=== PATIENT | male | born 1960 | race Hispanic/Latino ===

== ENCOUNTER 2017-12-10 10:22 | Emergency (ER) | payer SELFPAY ==
[~2017-12-10] VITALS: Ht 157.5 cm; Wt 78.0 kg
[~2017-12-10 10:22] MED LIST: TYLENOL # 31 TAB PO
[2017-12-10] MEDS ORDERED: CEPHALEXIN500 MG PO (10:50)
[2017-12-10 11:25] LABS: URINE BILIRUBIN - DIPSTICK NEGATIVE (NEGATIVE); URINE BLOOD DIPSTICK MODERATE (NEGATIVE); URINE GLUCOSE - DIPSTICK NEGATIVE (NEGATIVE); URINE KETONE NEGATIVE (NEGATIVE); URINE PROTEIN - DIPSTICK 30 mg/dL (NEG-TRACE)
[2017-12-10 11:33] LABS: URINE CLARITY SL CLOUDY; URINE COLOR ORANGE; URINE NITRITE - DIPSTICK POSITIVE (Negative)
[2017-12-10 11:34] LABS: URINE LEUK ESTERASE NEGATIVE (NEGATIVE)
[2017-12-10 11:38] LABS: URINE BACTERIA FEW hpf; URINE MUCUS MODERATE hpf (NONE-FEW); URINE WBC 0-2 WBC/hpf (0-5)
[2017-12-10 11:45] VITALS: BP 140/80
== END 2017-12-10 11:45 | disposition home or self-care (01) | DRG 696 ==
LOC: ED 10:22
PROVIDERS: Family Medicine
DX: R30.0 Dysuria (principal); R36.9 Urethral discharge, unspecified; Z20.2 Contact with and (suspected) exposure to infections with a predominantly sexual mode of transmission
CPT/HCPCS: J0561

== ENCOUNTER 2018-02-15 07:30 | Inpatient (IN) | payer SELFPAY ==
[~2018-02-15] VITALS: Ht 157.5 cm; Wt 78.0 kg
[~2018-02-15 07:30] MED LIST changes: +CEPHALEXIN500 MG PO
[2018-02-15 08:43] LABS: HEMATOCRIT 43.4 % (39.0-50.0); HEMOGLOBIN 14.9 g/dl (14.0-18.0); IMMATURE GRANULOCYTES 0.4 % (0.0-1.0); MEAN CELL VOLUME 89.3 fL CALC (80.0-100.0); MEAN CORPUSCULAR HGB 30.7 pG CALC (26.0-32.0); MEAN CORPUSCULAR HGB CONC 34.3 g/L CALC (32.0-36.0); NEUT# 6.64 thou/uL (1.82-7.42); RED BLOOD COUNT 4.86 mill/uL (4.70-6.10); RED CELL DISTRI WIDTH 13.1 % (11.5-15.5); URINE BILIRUBIN - DIPSTICK NEGATIVE (NEGATIVE); URINE BLOOD DIPSTICK LARGE (NEGATIVE); URINE GLUCOSE - DIPSTICK NEGATIVE (NEGATIVE); URINE KETONE NEGATIVE (NEGATIVE); URINE LEUK ESTERASE TRACE (NEGATIVE); URINE NITRITE - DIPSTICK NEGATIVE (Negative); URINE PH 6.5 (4.5-8.0); URINE PROTEIN - DIPSTICK 100 mg/dL (NEG-TRACE); URINE UROBILINOGEN - DIPSTICK 0.2 E.U./dL (0.2)
[2018-02-15 08:48] LABS: URINE CLARITY BLOODY; URINE COLOR RED
[2018-02-15 08:56] LABS: ALBUMIN 4.6 g/dL (3.2-5.0); ALKALINE PHOSPHATASE 114 u/l (38-126); ANION GAP 22 (6-22 (CALC)); BILIRUBIN, TOTAL 2.2 mg/dL (0.0-1.4); BUN 10 mg/dL (9-20); BUN/CREATININE RATIO 14 (12-20 (CALC)); CARBON DIOXIDE 20 mmol/l (22-30); CHLORIDE 101 mmol/l (95-108); CREATININE 0.7 mg/dL (0.7-1.3); GFR > 60 ML/MIN (>=60 (CALC)); GFR FOR AFR.AMER. > 60 ML/MIN (>=60 (CALC)); POTASSIUM 3.9 mmol/l (3.5-5.1); SGOT/AST 56 u/l (17-59); SGPT/ALT 43 u/l (21-72); SODIUM 139 mmol/l (137-146); TOTAL PROTEIN 8.7 g/dL (6.3-8.2); URINE RBC TNTC RBC/hpf (0-5); URINE WBC 0-2 WBC/hpf (0-5)
[2018-02-15 13:40] VITALS: BP 182/100
[2018-02-15 15:51] VITALS: BP 179/105
[2018-02-15 19:00] VITALS: BP 170/98
[2018-02-15 23:59] VITALS: BP 158/95
[2018-02-16] VITALS (10 sets, daily range): BP systolic 91–179; BP diastolic 57–99
[2018-02-16 05:04] LABS: HEMATOCRIT 41.2 % (39.0-50.0); HEMOGLOBIN 14.1 g/dl (14.0-18.0); MEAN CORPUSCULAR HGB 30.8 pG CALC (26.0-32.0); MEAN CORPUSCULAR HGB CONC 34.2 g/L CALC (32.0-36.0); RED BLOOD COUNT 4.58 mill/uL (4.70-6.10); RED CELL DISTRI WIDTH 13.2 % (11.5-15.5)
[2018-02-16 05:17] LABS: ANION GAP 18 (6-22 (CALC)); BUN 7 mg/dL (9-20); BUN/CREATININE RATIO 11 (12-20 (CALC)); CARBON DIOXIDE 22 mmol/l (22-30); CHLORIDE 102 mmol/l (95-108); CREATININE 0.6 mg/dL (0.7-1.3); GFR > 60 ML/MIN (>=60 (CALC)); GFR FOR AFR.AMER. > 60 ML/MIN (>=60 (CALC)); POTASSIUM 3.5 mmol/l (3.5-5.1); SODIUM 139 mmol/l (137-146)
[2018-02-17 00:05] VITALS: BP 121/76
[2018-02-17 04:10] VITALS: BP 150/88
[2018-02-17 05:16] LABS: ANION GAP 16 (6-22 (CALC)); BUN 8 mg/dL (9-20); BUN/CREATININE RATIO 10 (12-20 (CALC)); CARBON DIOXIDE 25 mmol/l (22-30); CHLORIDE 102 mmol/l (95-108); CREATININE 0.8 mg/dL (0.7-1.3); GFR > 60 ML/MIN (>=60 (CALC)); GFR FOR AFR.AMER. > 60 ML/MIN (>=60 (CALC)); POTASSIUM 3.5 mmol/l (3.5-5.1); SODIUM 139 mmol/l (137-146)
[2018-02-17 05:18] LABS: HEMATOCRIT 38.6 % (39.0-50.0); HEMOGLOBIN 13.1 g/dl (14.0-18.0); MEAN CORPUSCULAR HGB 30.9 pG CALC (26.0-32.0); MEAN CORPUSCULAR HGB CONC 33.9 g/L CALC (32.0-36.0); RED BLOOD COUNT 4.24 mill/uL (4.70-6.10); RED CELL DISTRI WIDTH 13.4 % (11.5-15.5)
[2018-02-17 07:30] VITALS: BP 134/90
[2018-02-17 12:00] VITALS: BP 148/87
[2018-02-17] MEDS ORDERED: AMLODIPINE BESYL5 MG PO (12:11)
== END 2018-02-17 14:10 | disposition home or self-care (01) | DRG 694 ==
LOC: ED 07:30 → ED-I 12:28 → ED 12:37 → MS2 12:38
PROVIDERS: Family Medicine; ADMIT Internal Medicine; ATTEND Internal Medicine
PROC: 0T9B70Z Drainage of Bladder with Drainage Device, Via Natural or Artificial Opening (ICD-10-PCS; 2018-02-15)
PROC: 0TCD8ZZ Extirpation of Matter from Urethra, Via Natural or Artificial Opening Endoscopic (ICD-10-PCS; principal; 2018-02-16)
DX: N21.1 Calculus in urethra (principal); N13.8 Other obstructive and reflux uropathy; N20.0 Calculus of kidney; I10 Essential (primary) hypertension; Z87.442 Personal history of urinary calculi
CPT/HCPCS: Q9967

== ENCOUNTER 2018-02-21 09:10 | Emergency (ER) | payer SELFPAY ==
[~2018-02-21] VITALS: Ht 157.5 cm; Wt 70.0 kg
[~2018-02-21 09:10] MED LIST changes: +AMLODIPINE BESYL5 MG PO
[2018-02-21 09:34] VITALS: BP 128/77
== END 2018-02-21 09:37 | disposition home or self-care (01) | DRG 700 ==
LOC: ED 09:10
DX: Z46.6 Encounter for fitting and adjustment of urinary device (principal); Z87.442 Personal history of urinary calculi